=== PATIENT | female | born 1960 | race Two or more races ===

== ENCOUNTER 2020-01-03 18:10 | Emergency (ER) | payer MEDICARE, MEDICAID ==
[~2020-01-03] VITALS: Ht 167.6 cm; Wt 61.2 kg
--- NOTE | 2020-01-03 18:18 | NUR ---
ED Nurse Note: Pt brought in by ambulance from home c/o depression x 5 years. Pt is not taking her medications anymore. Pt does not want to eat food anymore either. Respirations even and unlabored on room air. Vitals stable as documented.
[2020-01-03 18:21] VITALS: BP 106/77
--- NOTE | 2020-01-03 19:07 | NUR ---
ED Nurse Note: Pt refusing blood draw at this time. ED PA aware
--- NOTE | 2020-01-03 19:17 | NUR ---
[employer] at bedside.
--- NOTE | 2020-01-03 19:24 | NUR ---
ED Nurse Note: [employer] @ bedside
--- NOTE | 2020-01-03 19:27 | NUR ---
ED Nurse Note: Report given to MELISSA Pham
[2020-01-03 19:28] VITALS: BP 118/75
--- NOTE | 2020-01-03 19:28 | NUR ---
ED Nurse Note: Received report from Adelia TORRES. Pt awake, alert and oriented. Verbally responsive. Not in any distress.
[2020-01-03] MEDS ORDERED: DiphenhydrAMINE 50mg/ml Inj IM ONE (19:30)
--- NOTE | 2020-01-03 19:31 | NUR ---
ED Nurse Note: RN attempted to draw some blood and start and IV line but pt refused. Explained risk and benefits, verbally understood. ERPA notified and acknowledged.
--- NOTE | 2020-01-03 19:32 | NUR ---
ED Nurse Note: NS 1L not given, pt refused to start an IV line. ERPA aware.
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
[2020-01-03] MEDS ORDERED: LORazepam Inj 2mg/ml 1ml IM ONE (21:15)
[2020-01-03 21:35] VITALS: BP 111/68
--- NOTE | 2020-01-03 22:10 | NUR ---
ED Nurse Note: IV line established. Blood specimen collected and sent to lab. NS 1L is currently running.
[2020-01-03 22:26] LABS: BASOPHILS % (AUTO) 1.6 % (0.0-2.0); EOSINOPHILS % (AUTO) 1.1 % (0.0-3.0); HEMATOCRIT 41.1 % (37.0-47.0); LYMPHOCYTES % (AUTO) 40.7 % (20.0-45.0); MEAN CORPUSCULAR VOLUME 98 FL (80-99); MONOCYTES % (AUTO) 9.3 % (1.0-10.0); NEUTROPHILS % (AUTO) 47.3 % (45.0-75.0); PLATELET COUNT 219 K/UL (150-450); RED BLOOD COUNT 4.21 M/UL (4.20-5.40); RED CELL DISTRIBUTION WIDTH 13.5 % (11.6-14.8); WHITE BLOOD COUNT 4.2 K/UL (4.8-10.8)
[2020-01-03 22:38] LABS: ANION GAP 11 mmol/L (5-15); BLOOD UREA NITROGEN 4 mg/dL (7-18); CALCIUM 9.6 MG/DL (8.5-10.1); CARBON DIOXIDE 30 MMOL/L (21-32); CHLORIDE 105 MMOL/L (98-107); CREATININE 0.8 MG/DL (0.55-1.30); POTASSIUM 4.1 MMOL/L (3.5-5.1); SODIUM 145 MMOL/L (136-145)
[2020-01-03 22:42] LABS: ALANINE AMINOTRANSFERASE 14 U/L (12-78); ALBUMIN 4.1 G/DL (3.4-5.0); ALBUMIN/GLOBULIN RATIO 1.1 (1.0-2.7); ALKALINE PHOSPHATASE 93 U/L (46-116); ASPARTATE AMINO TRANSFERASE 20 U/L (15-37); BILIRUBIN,TOTAL 0.6 MG/DL (0.2-1.0)
[2020-01-03 23:52] VITALS: BP 122/69
[2020-01-04 01:49] VITALS: BP 123/76
--- NOTE | 2020-01-04 02:15 | NUR ---
ED Nurse Note: Pt able to walk to the restroom with steady gait.
--- NOTE | 2020-01-04 02:20 | NUR ---
ED Nurse Note: Urine specimen collected and sent to lab.
[2020-01-04 03:02] VITALS: BP 117/67
[2020-01-04 03:19] LABS: APPEARANCE,URINE CLEAR; BILIRUBIN, URINE NEGATIVE (NEGATIVE); COLOR,URINE PALE YELLOW; GLUCOSE, URINE (UA) NEGATIVE (NEGATIVE); KETONES,URINE 2+ (NEGATIVE); LEUKOCYTE ESTERASE ,URINE NEGATIVE (NEGATIVE); NITRITE,URINE NEGATIVE (NEGATIVE); PH,URINE 6.5 (4.5-8.0); PROTEIN,URINE NEGATIVE (NEGATIVE); UROBILINOGEN,URINE NORMAL MG/DL (0.0-1.0)
--- NOTE | 2020-01-04 04:36 | NUR ---
ED Nurse Note: Pt seen sleeping in bed. Not in any distress. Safety and comfort provided. Will cont to monitor.
--- NOTE | 2020-01-04 05:55 | NUR ---
ED Nurse Note: Pt sleeping in bed. Breathing even and unlabored. Not in any distress. Will cont to monitor.
[2020-01-04 06:26] VITALS: BP 121/77
--- NOTE | 2020-01-04 07:17 | NUR ---
HAND-OFF: Report given to Riri TORRES. Endorsed plan of care.
--- NOTE | 2020-01-04 08:01 | NUR ---
ED Nurse Note:pt. is sleeping in room no signs of distress noted
--- NOTE | 2020-01-04 08:30 | NUR ---
ED Nurse Note:pt. ate her breakfast
--- NOTE | 2020-01-04 09:00 | NUR ---
per dr monzon she will come to evaluate the patient
--- NOTE | 2020-01-04 09:09 | NUR ---
ED Nurse Note:IV line was removed, pt. still resting in her room
[2020-01-04 13:14] VITALS: BP_SYST 121; BP_SYST 126; BP_DIAS 77; BP_DIAS 78
--- NOTE | 2020-01-04 15:00 | NUR ---
dr mnozon called and stated she is unable to come and evaluate the patient
--- NOTE | 2020-01-04 17:33 | NUR ---
ED Nurse Note:pt. ate her lunch, no c/o pain or discomfort at this time, she is mostly a sleep
--- NOTE | 2020-01-04 18:13 | NUR ---
ED Nurse Note:called [facility] with report- given to Adriana TORRES
--- NOTE | 2020-01-04 19:15 | NUR ---
ED Nurse Note: Report received from Riri silva RN. pt in bed resting, no acute distress is noted.
--- NOTE | 2020-01-04 20:06 | NUR ---
ED Nurse Note: report given to MELISSA Griffin from [facility]
[2020-01-04 20:07] VITALS: BP 120/80
[2020-01-04 20:33] VITALS: BP 125/75
--- NOTE | 2020-01-04 20:33 | NUR ---
ED Nurse Note: pt ws picked up [facility] and [facility]. Report given to ambulance personnel.
== END 2020-01-04 20:33 ==
LOC: EDBD 18:10 → EMR 18:20
DX: R45.851 Suicidal ideations (principal); F33.2 Major depressive disorder, recurrent severe without psychotic features; Z91.14 Patient's other noncompliance with medication regimen
CPT/HCPCS: 36415; 80053; 80307; 81003; 85025; 96372; 99285; G0480; J1200